=== PATIENT | female | born 1930 | race Hispanic/Latino ===

== ENCOUNTER 2017-12-29 08:25 | Emergency (ER) | payer MEDICARE ==
[~2017-12-29 08:25] MED LIST: ACET-2247 PO; ACET-2900 PO; ASPI-555 PO; ATOR40TA69 PO; CHOL100018 PO; CLON0.1T PO; DONE10TA8 PO; DSSL PO; FERR325T22 PO; FURO20TA4 PO; ISOS30TA6 PO; MAG360OR93 PO; MULT-12 PO; NITR0.4T SL; OMEP20CA10 PO; PHEN100O5 PO; POLY17PO3 PO; POTA20PA3 PO
[2017-12-29 09:36] LABS: BASOPHILS % (AUTO) 0.7 % (0.0-5.0); EOSINOPHILS % (AUTO) 5.8 % (0.0-8.0); HEMATOCRIT 34.1 % (36-48); LYMPHOCYTES % (AUTO) 34.9 % (21.0-51.0); MEAN CORPUSCULAR HEMOGLOBIN 27.2 pg (27.0-33.0); MEAN CORPUSCULAR HGB CONC 32.9 g/dL (32.0-36.0); MEAN CORPUSCULAR VOLUME 82.7 fL (79-99); MONOCYTES % (AUTO) 10.5 % (3.0-13.0); NEUTROPHILS % (AUTO) 48.1 % (40.0-77.0); PLATELET COUNT (AUTO) 183 K/uL (130-400); RED BLOOD CELL COUNT(AUTO) 4.13 MIL/uL (4.00-5.50); RED CELL DISTRIBUTION WIDTH 15.3 % (11.0-15.5); WHITE BLOOD COUNT (AUTO) 6.1 K/uL (4.8-10.8)
[2017-12-29 09:44] LABS: CREATININE 1.1 mg/dL (0.5-1.5)
[2017-12-29 09:57] LABS: ALBUMIN 3.2 g/dL (3.5-5.0); BILIRUBIN,TOTAL 0.2 mg/dL (0.2-1.0); CREATINE KINASE MB 0.7 ng/mL (0.5-3.6); PHENYTOIN (DILANTIN) 10.8 mcg/mL (10.0-20.0); TOTAL PROTEIN, SERUM 7.3 g/dL (6.0-8.3)
[2017-12-29 10:15] LABS: B-TYPE NATRIURETIC PEPTIDE 807 pg/mL (0-100)
[2017-12-29] MEDS ORDERED: FUROSEMIDE 10 MG/ML 4ML VIAL ONE (10:31)
== END 2017-12-29 12:03 ==
LOC: EDH 08:25
DX: I50.9 Heart failure, unspecified (principal); E78.5 Hyperlipidemia, unspecified; K21.9 Gastro-esophageal reflux disease without esophagitis
CPT/HCPCS: 36415; 71045; 80053; 80185; 82550; 82553; 83880; 84484; 85025; 96374; 99285; J1940

== ENCOUNTER 2018-03-12 20:04 | Emergency (ER) | payer MEDICARE ==
[2018-03-12 22:20] LABS: BASOPHILS % (AUTO) 0.6 % (0.0-5.0); HEMATOCRIT 38.3 % (36-48); MEAN CORPUSCULAR VOLUME 84.8 fL (79-99); MONOCYTES % (AUTO) 8.9 % (3.0-13.0); NEUTROPHILS % (AUTO) 64.5 % (40.0-77.0); NUCLEATED RED BLOOD CELLS 0.1 % (0.0-0.19); PLATELET COUNT (AUTO) 186 K/uL (130-400); RED BLOOD CELL COUNT(AUTO) 4.52 MIL/uL (4.00-5.50); RED CELL DISTRIBUTION WIDTH 14.6 % (11.0-15.5); WHITE BLOOD COUNT (AUTO) 7.1 K/uL (4.8-10.8)
[2018-03-12 22:32] LABS: INR 0.94 (0.85-1.15); PARTIAL THROMBOPLASTIN TIME 26.6 SEC (26.3-35.5); PROTHROMBIN TIME 9.9 SEC (9.6-11.6)
[2018-03-12 22:35] LABS: CREATININE 1.2 mg/dL (0.5-1.5)
[2018-03-12 22:39] LABS: ALBUMIN 3.1 g/dL (3.5-5.0); BILIRUBIN,TOTAL 0.2 mg/dL (0.2-1.0); TOTAL PROTEIN, SERUM 7.1 g/dL (6.0-8.3)
== END 2018-03-13 02:54 | disposition home or self-care (01) ==
LOC: EDH 20:04
DX: S00.01XA Abrasion of scalp, initial encounter (principal); S50.811A Abrasion of right forearm, initial encounter; K21.9 Gastro-esophageal reflux disease without esophagitis; I50.32 Chronic diastolic (congestive) heart failure; E78.5 Hyperlipidemia, unspecified; I25.119 Atherosclerotic heart disease of native coronary artery with unspecified angina pectoris; Z88.1 Allergy status to other antibiotic agents; W05.0XXA Fall from non-moving wheelchair, initial encounter; Y93.89 Activity, other specified; Y92.89 Other specified places as the place of occurrence of the external cause; Y99.8 Other external cause status
CPT/HCPCS: 36415; 70450; 71045; 72125; 72170; 80053; 82550; 84484; 85025; 85610; 85730

== ENCOUNTER 2018-04-19 02:25 | Emergency (ER) | payer MEDICARE ==
[2018-04-19 03:54] LABS: BASOPHILS % (AUTO) 0.6 % (0.0-5.0); EOSINOPHILS % (AUTO) 2.1 % (0.0-8.0); HEMATOCRIT 43.7 % (36-48); LYMPHOCYTES % (AUTO) 35.4 % (21.0-51.0); MEAN CORPUSCULAR HGB CONC 33.9 g/dL (32.0-36.0); MEAN CORPUSCULAR VOLUME 85.5 fL (79-99); MONOCYTES % (AUTO) 7.6 % (3.0-13.0); NEUTROPHILS % (AUTO) 54.3 % (40.0-77.0); NUCLEATED RED BLOOD CELLS 0.1 % (0.0-0.19); PLATELET COUNT (AUTO) 191 K/uL (130-400); RED BLOOD CELL COUNT(AUTO) 5.11 MIL/uL (4.00-5.50); RED CELL DISTRIBUTION WIDTH 13.9 % (11.0-15.5); WHITE BLOOD COUNT (AUTO) 6.8 K/uL (4.8-10.8)
[2018-04-19 04:01] LABS: INR 0.95 (0.85-1.15); PARTIAL THROMBOPLASTIN TIME 27.8 SEC (26.3-35.5)
[2018-04-19 04:12] LABS: CREATINE KINASE MB 3.1 ng/mL (0.5-3.6)
== END 2018-04-19 05:50 | disposition home or self-care (01) ==
LOC: EDH 02:25
DX: I11.0 Hypertensive heart disease with heart failure (principal); I50.32 Chronic diastolic (congestive) heart failure; F03.90 Unspecified dementia, unspecified severity, without behavioral disturbance, psychotic disturbance, mood disturbance, and anxiety; E78.5 Hyperlipidemia, unspecified; K21.9 Gastro-esophageal reflux disease without esophagitis; Z86.73 Personal history of transient ischemic attack (TIA), and cerebral infarction without residual deficits; Z88.1 Allergy status to other antibiotic agents; Z79.899 Other long term (current) drug therapy
CPT/HCPCS: 36415; 71045; 82550; 82553; 85025; 85610; 85730; 93005